=== PATIENT | male | born 2000 | race Two or more races ===

== ENCOUNTER 2018-12-03 16:59 | Outpatient (CLI) | payer SELFPAY | END 2018-12-03 17:00 | disposition EMS.NT | LOC: EMS 16:59 | PROVIDERS: ATTEND Surgery | DX: Z03.89 Encounter for observation for other suspected diseases and conditions ruled out (principal) ==

== ENCOUNTER 2019-04-06 19:41 | Outpatient (CLI) | payer MEDICAID | END 2019-04-06 19:42 | disposition EMS.NT | LOC: EMS 19:41 | PROVIDERS: ATTEND Surgery | DX: R56.9 Unspecified convulsions (principal); S09.90XA Unspecified injury of head, initial encounter; W18.30XA Fall on same level, unspecified, initial encounter; Y92.001 Dining room of unspecified non-institutional (private) residence as the place of occurrence of the external cause ==